=== PATIENT | female | born 1960 | race Caucasian/White ===

== ENCOUNTER → 2016-07-19 | Outpatient (CLI) | payer MEDICARE, OTHER ==
[2016-07-19 07:47] LABS: BASOPHIL% 0.4 % (0-2.5); EOSINOPHIL# 0.2 X10e3 (0-0.7); EOSINOPHIL% 2.8 % (0.0-7.0); HEMATOCRIT 32.4 % (35.0-45.0); HEMOGLOBIN 10.4 gm/dL (12.0-16.0); LYMPHOCYTE# 0.5 X10e3 (1.0-3.5); LYMPHOCYTE% 9.8 % (17.0-45.0); MEAN CELL VOLUME 90.9 FL (83-96); MEAN CORPUSCULAR HGB CONC 31.9 g/dL (30-36); MEAN PLATELET VOLUME 7.7 FL (6.5-11.5); MONOCYTE# 0.6 X10e3 (0-1.0); MONOCYTE% 10.5 % (3.0-12.0); NEUTROPHIL# 4.1 X10e3 (1.5-7.1); NEUTROPHIL% 76.5 % (40-75); PLATELET COUNT 200 X10e3 (140-420); RED BLOOD COUNT 3.57 X10e (3.90-5.30); RED CELL DISTRIBUTION WIDTH 13.7 % (11.0-15.5); WHITE BLOOD COUNT 5.4 X10e3 (4.0-10.5)
[2016-07-19 07:57] LABS: DIFF IND YES
[2016-07-19 08:14] LABS: ALBUMIN SERUM 3.5 g/dL (3.5-5.0); BILIRUBIN,TOTAL 0.6 mg/dL (0.2-2.0); BUN/CREATININE RATIO 16.25; CALCIUM SERUM 8.7 mg/dL (8.4-10.2); CREATININE SERUM 1.6 mg/dL (0.6-1.4); GLOM FILT RATE Estimated 35.6 mL/min (>60); MAGNESIUM 2.4 mg/dL (1.6-3.0); PHOSPHOROUS 3.4 mg/dL (2.5-4.6); PROTEIN TOTAL SERUM 5.9 g/dL (6.0-8.3); URIC ACID 6.6 mg/dL (2.6-7.2)
[2016-07-19 08:30] LABS: PLATELET ESTIMATE NORMAL (NORMAL); RBC NORMAL YES
== END | disposition home or self-care (01) ==
LOC: CTPL 06:39
PROVIDERS: Internal Medicine Cardiovascular Disease
DX: Z48.21 Encounter for aftercare following heart transplant (principal); I12.9 Hypertensive chronic kidney disease with stage 1 through stage 4 chronic kidney disease, or unspecified chronic kidney disease; N18.9 Chronic kidney disease, unspecified; E78.5 Hyperlipidemia, unspecified; E83.42 Hypomagnesemia; Z79.899 Other long term (current) drug therapy; Z94.1 Heart transplant status
CPT/HCPCS: 36415; 80053; 80061; 80197; 82550; 83735; 84100; 84550; 85025

== ENCOUNTER → 2016-09-12 | Outpatient (CLI) | payer MEDICARE, OTHER ==
[2016-09-12 07:12] LABS: BASOPHIL% 1.4 % (0-2.5); DIFF IND YES; EOSINOPHIL# 0.2 X10e3 (0-0.7); EOSINOPHIL% 6.4 % (0.0-7.0); HEMATOCRIT 33.1 % (35.0-45.0); HEMOGLOBIN 10.5 gm/dL (12.0-16.0); LYMPHOCYTE# 0.7 X10e3 (1.0-3.5); MEAN CELL VOLUME 92.7 FL (83-96); MEAN CORPUSCULAR HEMOGLOBIN 29.4 PG (28-34); MEAN CORPUSCULAR HGB CONC 31.7 g/dL (30-36); MEAN PLATELET VOLUME 7.6 FL (6.5-11.5); MONOCYTE# 0.4 X10e3 (0-1.0); MONOCYTE% 11.6 % (3.0-12.0); NEUTROPHIL# 1.8 X10e3 (1.5-7.1); NEUTROPHIL% 58.6 % (40-75); PLATELET COUNT 199 X10e3 (140-420); RED BLOOD COUNT 3.57 X10e (3.90-5.30); RED CELL DISTRIBUTION WIDTH 13.7 % (11.0-15.5); WHITE BLOOD COUNT 3.1 X10e3 (4.0-10.5)
[2016-09-12 07:43] LABS: PLATELET ESTIMATE NORMAL (NORMAL); RBC NORMAL YES
[2016-09-12 07:44] LABS: ANISOCYTOSIS SL; OVALOCYTES PRESENT; POIKILOCYTOSIS SL
[2016-09-12 08:07] LABS: ALBUMIN SERUM 3.8 g/dL (3.5-5.0); BILIRUBIN,TOTAL 0.4 mg/dL (0.2-2.0); BUN/CREATININE RATIO 23.63; CALCIUM SERUM 8.8 mg/dL (8.4-10.2); CREATININE SERUM 1.1 mg/dL (0.6-1.4); GLOM FILT RATE Estimated 56.1 mL/min (>60); MAGNESIUM 1.7 mg/dL (1.6-3.0); PHOSPHOROUS 3.7 mg/dL (2.5-4.6); POTASSIUM 4.7 mmol/L (3.5-5.1); PROTEIN TOTAL SERUM 6.3 g/dL (6.0-8.3); URIC ACID 5.6 mg/dL (2.6-7.2)
== END | disposition home or self-care (01) ==
LOC: CTPL 06:36
PROVIDERS: Internal Medicine Cardiovascular Disease
DX: Z48.21 Encounter for aftercare following heart transplant (principal); I12.9 Hypertensive chronic kidney disease with stage 1 through stage 4 chronic kidney disease, or unspecified chronic kidney disease; N18.9 Chronic kidney disease, unspecified; E78.5 Hyperlipidemia, unspecified; E83.42 Hypomagnesemia; Z94.1 Heart transplant status; Z79.899 Other long term (current) drug therapy
CPT/HCPCS: 36415; 80053; 80061; 80197; 82550; 83735; 84100; 84550; 85025; 87497

== ENCOUNTER → 2016-10-17 | Outpatient (CLI) | payer MEDICARE, OTHER ==
--- NOTE | ~2016-10-17 | US128 ---
[id number] [facility] [address] [facility]. [place], [place] [address] [id number] O MR#: [id number] Acc #: [id number] NAME: CARLOS BLUNT : 1960 SEX: F STUDY DATE/TIME: 10/17/2016 7:56 UNIT: [facility]US ROOM: STUDY DESCRIPTION: US Thyroid Attending Physician: Armand Kuhn Referring Physician: Armand Grace M.D. Ordering Physician: Physician Non-Staff Primary Care Physician: Loren Elena M.D. MEDICAL IMAGING REPORT This report is preliminary unless electronic signature is present EXAM Thyroid ultrasound DATE 10/17/16 HISTORY Follow up thyroid nodule. COMPARISON Thyroid ultrasound 05/04/2016 FINDINGS The right thyroid lobe measures 1.4 x 5.1 x 1.6 cm. The isthmus measures 3 mm thickness. The left thyroid lobe measures 1.7 x 4.6 x 1.4 cm. The thyroid echotexture is somewhat heterogeneous. No suspicious microcalcifications are seen on either side. A tiny hypoechoic nodule within left upper thyroid pole, without hypervascularity or microcalcification, measures 3.6 X 2.5 X 3.3 mm, and measures slightly smaller than on the previous ultrasound where it measured 4.6 x 5.6 x 4.7 mm, likely due to internal resolution of a cystic component within it. A dominant hypoechoic nodule is demonstrated within the anterior left mid thyroid lobe measuring 5.1 x 4.6 x 5.1 cm. It is thought to correspond to a more simple-appearing cystic focus on 05/04/16 which measured 4.8 x 6.7 x 6.5 mm. I suspect on the current examination, it contains some echogenic fluid or proteinaceous debris. Nonetheless, it measures very slightly smaller than on previous exam. On the sagittal image, it has an appearance of a benign colloid type cyst. Other scattered tiny hypoechoic foci are seen within the left thyroid lobe which appear roughly stable. IMPRESSION Two dominant hypoechoic nodules are seen within the left thyroid lobe, each measuring slightly smaller than on the previous examination. The dominant hypoechoic nodule has appearance of a colloid cyst, potentially containing some internal hemorrhagic proteinaceous components. No new or suspicious appearing left thyroid nodule seen on today's examination. None of these meets sonographic criteria to warrant fine-needle aspiration at this time (based on Society radiologist and ultrasound criteria). Thyromegaly, unchanged. Dictated by... Rosa Weir M.D. THIS IS AN ELECTRONICALLY VERIFIED REPORT Rosa Weir M.D. at 10/18/2016 5:28 PM SELENA/parris TD: 10/18/2016 12:47 JOB #: [id number] MEDICAL IMAGING REPORT Page 1 of 1 COPY
[2016-10-17 07:49] LABS: BASOPHIL% 0.8 % (0-2.5); DIFF IND YES; EOSINOPHIL# 0.2 X10e3 (0-0.7); EOSINOPHIL% 5.5 % (0.0-7.0); HEMATOCRIT 31.4 % (35.0-45.0); LYMPHOCYTE# 0.6 X10e3 (1.0-3.5); LYMPHOCYTE% 20.2 % (17.0-45.0); MEAN CELL VOLUME 92.1 FL (83-96); MEAN CORPUSCULAR HEMOGLOBIN 29.3 PG (28-34); MEAN CORPUSCULAR HGB CONC 31.8 g/dL (30-36); MONOCYTE# 0.4 X10e3 (0-1.0); NEUTROPHIL# 1.9 X10e3 (1.5-7.1); NEUTROPHIL% 61.5 % (40-75); PLATELET COUNT 179 X10e3 (140-420); RED BLOOD COUNT 3.41 X10e (3.90-5.30); RED CELL DISTRIBUTION WIDTH 13.7 % (11.0-15.5)
[2016-10-17 08:10] LABS: ANISOCYTOSIS SL; PLATELET ESTIMATE NORMAL (NORMAL); POIKILOCYTOSIS SL; RBC NORMAL YES
[2016-10-17 08:28] LABS: ALBUMIN SERUM 3.8 g/dL (3.5-5.0); BILIRUBIN,TOTAL 0.6 mg/dL (0.2-2.0); BUN/CREATININE RATIO 21.53; CALCIUM SERUM 8.9 mg/dL (8.4-10.2); CREATININE SERUM 1.3 mg/dL (0.6-1.4); GLOM FILT RATE Estimated 45.8 mL/min (>60); MAGNESIUM 1.7 mg/dL (1.6-3.0); PHOSPHOROUS 4.5 mg/dL (2.5-4.6); POTASSIUM 4.6 mmol/L (3.5-5.1); PROTEIN TOTAL SERUM 5.8 g/dL (6.0-8.3); URIC ACID 5.9 mg/dL (2.6-7.2)
[2016-10-22 23:14] LABS: CALCIUM (PTHINTACT) 9.1 mg/dL (8.6-10.4)
== END | disposition home or self-care (01) ==
LOC: CGUS 06:43
PROVIDERS: Internal Medicine Cardiovascular Disease
DX: Z48.21 Encounter for aftercare following heart transplant (principal); I12.9 Hypertensive chronic kidney disease with stage 1 through stage 4 chronic kidney disease, or unspecified chronic kidney disease; N18.9 Chronic kidney disease, unspecified; E78.5 Hyperlipidemia, unspecified; E83.42 Hypomagnesemia; E04.2 Nontoxic multinodular goiter; Z79.899 Other long term (current) drug therapy
CPT/HCPCS: 36415; 76536; 80053; 80061; 80197; 82306; 82310; 82523; 82550; 82607; 82652; 83735; 83937; 83970; 84100; 84550; 85025; 87497

== ENCOUNTER → 2016-11-21 | Outpatient (CLI) | payer MEDICARE, OTHER ==
[2016-11-21 07:59] LABS: BASOPHIL% 0.9 % (0-2.5); EOSINOPHIL# 0.2 X10e3 (0-0.7); EOSINOPHIL% 6.4 % (0.0-7.0); HEMOGLOBIN 10.3 gm/dL (12.0-16.0); LYMPHOCYTE# 0.7 X10e3 (1.0-3.5); LYMPHOCYTE% 27.1 % (17.0-45.0); MEAN CELL VOLUME 91.1 FL (83-96); MEAN CORPUSCULAR HEMOGLOBIN 29.3 PG (28-34); MEAN CORPUSCULAR HGB CONC 32.1 g/dL (30-36); MEAN PLATELET VOLUME 7.8 FL (6.5-11.5); MONOCYTE# 0.3 X10e3 (0-1.0); MONOCYTE% 12.3 % (3.0-12.0); NEUTROPHIL# 1.5 X10e3 (1.5-7.1); NEUTROPHIL% 53.3 % (40-75); PLATELET COUNT 192 X10e3 (140-420); RED BLOOD COUNT 3.51 X10e (3.90-5.30); RED CELL DISTRIBUTION WIDTH 13.9 % (11.0-15.5); WHITE BLOOD COUNT 2.7 X10e3 (4.0-10.5)
[2016-11-21 08:01] LABS: DIFF IND YES
[2016-11-21 08:11] LABS: ALBUMIN SERUM 3.9 g/dL (3.5-5.0); BILIRUBIN,TOTAL 0.8 mg/dL (0.2-2.0); BUN/CREATININE RATIO 15.62; CREATININE SERUM 1.6 mg/dL (0.6-1.4); GLOM FILT RATE Estimated 35.7 mL/min (>60); MAGNESIUM 1.8 mg/dL (1.6-3.0); PHOSPHOROUS 3.7 mg/dL (2.5-4.6); POTASSIUM 4.8 mmol/L (3.5-5.1); PROTEIN TOTAL SERUM 6.5 g/dL (6.0-8.3); URIC ACID 6.2 mg/dL (2.6-7.2)
[2016-11-21 08:19] LABS: PLATELET ESTIMATE NORMAL (NORMAL); RBC NORMAL YES
== END | disposition home or self-care (01) ==
LOC: CTPL 07:00
PROVIDERS: Internal Medicine Cardiovascular Disease
DX: Z48.21 Encounter for aftercare following heart transplant (principal); I12.9 Hypertensive chronic kidney disease with stage 1 through stage 4 chronic kidney disease, or unspecified chronic kidney disease; N18.9 Chronic kidney disease, unspecified; E83.42 Hypomagnesemia; Z79.899 Other long term (current) drug therapy
CPT/HCPCS: 36415; 80053; 80061; 80197; 82550; 83735; 84100; 84550; 85025; 87497

== ENCOUNTER → 2016-12-06 | Outpatient (CLI) | payer MEDICARE, OTHER ==
[2016-12-06 07:56] LABS: BASOPHIL% 1.4 % (0-2.5); EOSINOPHIL# 0.2 X10e3 (0-0.7); HEMATOCRIT 31.1 % (35.0-45.0); HEMOGLOBIN 10.1 gm/dL (12.0-16.0); LYMPHOCYTE# 0.5 X10e3 (1.0-3.5); LYMPHOCYTE% 22.1 % (17.0-45.0); MEAN CELL VOLUME 90.9 FL (83-96); MEAN CORPUSCULAR HEMOGLOBIN 29.5 PG (28-34); MEAN CORPUSCULAR HGB CONC 32.4 g/dL (30-36); MEAN PLATELET VOLUME 7.8 FL (6.5-11.5); MONOCYTE# 0.3 X10e3 (0-1.0); NEUTROPHIL# 1.3 X10e3 (1.5-7.1); NEUTROPHIL% 55.5 % (40-75); PLATELET COUNT 192 X10e3 (140-420); RED BLOOD COUNT 3.42 X10e (3.90-5.30); RED CELL DISTRIBUTION WIDTH 14.1 % (11.0-15.5); WHITE BLOOD COUNT 2.4 X10e3 (4.0-10.5)
[2016-12-06 07:57] LABS: DIFF IND YES
[2016-12-06 08:52] LABS: BUN/CREATININE RATIO 23.07; CREATININE SERUM 1.3 mg/dL (0.6-1.4); GLOM FILT RATE Estimated 45.8 mL/min (>60); POTASSIUM 4.6 mmol/L (3.5-5.1)
[2016-12-06 11:11] LABS: HYPERSEGMENTED POLYS PRESENT; PLATELET ESTIMATE NORMAL (NORMAL); RBC NORMAL YES
[2016-12-08 22:13] LABS: CYTOMEGALOVIRUS IGG AB <0.60 U/mL (<0.60); CYTOMEGALOVIRUS IGM AB <30.00 AU/mL (<30.00)
== END | disposition home or self-care (01) ==
LOC: CTPL 07:06
PROVIDERS: Internal Medicine Cardiovascular Disease
DX: Z48.21 Encounter for aftercare following heart transplant (principal); I12.9 Hypertensive chronic kidney disease with stage 1 through stage 4 chronic kidney disease, or unspecified chronic kidney disease; N18.9 Chronic kidney disease, unspecified; E78.5 Hyperlipidemia, unspecified; Z79.899 Other long term (current) drug therapy
CPT/HCPCS: 36415; 80048; 80197; 85025; 86644; 86645; 87497

== ENCOUNTER → 2016-12-21 | Outpatient (CLI) | payer MEDICARE, OTHER ==
--- NOTE | ~2016-12-21 | MY29 ---
[facility] A Service of [facility] RADIOLOGY TEXT RESULTS PATIENT: CARLOS BLUNT LOCATION: [facility] : 60 UNIT #: [id number] AGE: [address]: Say Garrison MD SEX: F ORDER DR: [id number] [facility] [address] [facility]. [place], [place] [address] [id number] O MR#: [id number] Acc #: [id number] NAME: CARLOS BLUNT : 1960 SEX: F STUDY DATE/TIME: 12/21/2016 10:38 UNIT: [facility] ROOM: STUDY DESCRIPTION: MY FARHAN SCREENING W/ CAD BILAT Attending Physician: Say Garrison M.D. Ordering Physician: Say Grarison M.D. Primary Care Physician: Loren Elena M.D. MEDICAL IMAGING REPORT This report is preliminary unless electronic signature is present EXAM Digital screening mammogram 12/21/2016 HISTORY 56-year-old woman status post right lumpectomy 2004 with adjuvant therapy. Personal and family history, aunt. Heart transplant 2013. COMPARISON Mammograms date to 10/18/2007 with most recent 12/20/2015. FINDINGS Digital imaging of each breast was completed utilizing screening protocol. Lumpectomy markers were placed on the right. An additional exaggerated craniocaudal view of the right breast is included. Review includes FDA-approved CAD device. Breast size asymmetry is stable. Breast parenchyma is heterogeneous with residual parenchymal opacities stable in each breast. I see no interval occurring breast mass. There are no suspicious microcalcifications and no suspicious architectural deformity. IMPRESSION Negative mammogram. Stable post lumpectomy findings right breast. Annual screening recommended. Patients over the age of 40 are entered into a reminder system with target due date for the next mammogram. A result letter will also be sent to the patient. BIRADS: 1, negative. Dictated by... Michael Botello M.D. [facility] A Service of [facility] RADIOLOGY TEXT RESULTS PATIENT: CARLOS BLUNT LOCATION: [facility] : 60 UNIT #: [id number] AGE: [address]: Say Garrison MD SEX: F ORDER DR: THIS IS AN ELECTRONICALLY VERIFIED REPORT Michael Botello M.D. at 12/21/2016 2:35 PM JOEY/pushpa TD: 12/21/2016 14:25 JOB #: [id number] MEDICAL IMAGING REPORT Page 1 of 1 COPY
== END | disposition home or self-care (01) ==
LOC: CWCC 10:06
DX: Z12.31 Encounter for screening mammogram for malignant neoplasm of breast (principal); Z85.3 Personal history of malignant neoplasm of breast; Z80.3 Family history of malignant neoplasm of breast; Z98.890 Other specified postprocedural states; Z94.1 Heart transplant status
CPT/HCPCS: G0202

== ENCOUNTER → 2017-01-16 | Outpatient (CLI) | payer MEDICARE, OTHER ==
[2017-01-16 07:45] LABS: BASOPHIL% 1.4 % (0-2.5); EOSINOPHIL# 0.2 X10e3 (0-0.7); EOSINOPHIL% 7.3 % (0.0-7.0); HEMATOCRIT 31.5 % (35.0-45.0); HEMOGLOBIN 10.3 gm/dL (12.0-16.0); LYMPHOCYTE# 0.7 X10e3 (1.0-3.5); LYMPHOCYTE% 27.5 % (17.0-45.0); MEAN CELL VOLUME 92.1 FL (83-96); MEAN CORPUSCULAR HEMOGLOBIN 30.1 PG (28-34); MEAN CORPUSCULAR HGB CONC 32.7 g/dL (30-36); MEAN PLATELET VOLUME 7.1 FL (6.5-11.5); MONOCYTE# 0.3 X10e3 (0-1.0); MONOCYTE% 12.6 % (3.0-12.0); NEUTROPHIL# 1.4 X10e3 (1.5-7.1); NEUTROPHIL% 51.2 % (40-75); PLATELET COUNT 192 X10e3 (140-420); RED BLOOD COUNT 3.42 X10e (3.90-5.30); RED CELL DISTRIBUTION WIDTH 13.8 % (11.0-15.5); WHITE BLOOD COUNT 2.7 X10e3 (4.0-10.5)
[2017-01-16 07:46] LABS: DIFF IND YES
[2017-01-16 08:14] LABS: PLATELET ESTIMATE NORMAL (NORMAL); RBC NORMAL YES
[2017-01-16 08:42] LABS: ALBUMIN SERUM 3.7 g/dL (3.5-5.0); BILIRUBIN,TOTAL 0.4 mg/dL (0.2-2.0); BUN/CREATININE RATIO 13.84; CALCIUM SERUM 8.9 mg/dL (8.4-10.2); CREATININE SERUM 1.3 mg/dL (0.6-1.4); GLOM FILT RATE Estimated 45.8 mL/min (>60); MAGNESIUM 1.8 mg/dL (1.6-3.0); PHOSPHOROUS 3.4 mg/dL (2.5-4.6); POTASSIUM 4.3 mmol/L (3.5-5.1); PROTEIN TOTAL SERUM 6.2 g/dL (6.0-8.3); URIC ACID 5.5 mg/dL (2.6-7.2)
== END | disposition home or self-care (01) ==
LOC: CLAB 07:10 → CTPL 07:10
PROVIDERS: Internal Medicine Cardiovascular Disease
DX: Z48.21 Encounter for aftercare following heart transplant (principal); I12.9 Hypertensive chronic kidney disease with stage 1 through stage 4 chronic kidney disease, or unspecified chronic kidney disease; N18.9 Chronic kidney disease, unspecified; E78.5 Hyperlipidemia, unspecified; E83.42 Hypomagnesemia; Z79.899 Other long term (current) drug therapy
CPT/HCPCS: 36415; 80053; 80061; 80197; 82550; 83735; 84100; 84550; 85025; 87497